=== PATIENT | male | born 2000 | race African-American/Black ===

== ENCOUNTER 2024-12-11 20:56 | Emergency (ER) | payer BC ==
[~2024-12-11] VITALS: Ht 172.7 cm; Wt 72.6 kg
[2024-12-11 21:02] VITALS: BP 137/90; PULSE 6; PULSE 86; RESP 18; TEMP 99.2; O2SAT 98
[2024-12-11] MEDS ORDERED: CEPHALEXIN500 MG PO (21:12)
== END 2024-12-11 21:20 | disposition home or self-care (01) ==
LOC: FSED 21:10
DX: R30.0 Dysuria (principal); N30.91 Cystitis, unspecified with hematuria; F17.210 Nicotine dependence, cigarettes, uncomplicated
CPT/HCPCS: 81003; 99282